=== PATIENT | male | born 1965 | race Two or more races ===

== ENCOUNTER 2021-08-07 20:55 | Emergency (ER) | payer SELFPAY ==
[~2021-08-07] VITALS: Ht 167.6 cm; Wt 108.2 kg
[2021-08-07 21:41] VITALS: BP 158/94
[2021-08-07] MEDS ORDERED: LIDOCAINE (700MG/PATCH) PATCH. TD ONE (21:50)
[2021-08-07] MEDS ORDERED: KETOROLAC 60 MG/2 ML VIAL. IM ONE (22:00)
[2021-08-07] MEDS ORDERED: ORPHENADRINE CITRATE 60 MG/2 ML VIAL. IM ONE (22:00)
[2021-08-07] MEDS ORDERED: NAPR500T8 PO (22:52)
[2021-08-07] MEDS ORDERED: ORPH100T PO (22:52)
--- NOTE | 2021-08-07 22:57 | PHYS DOC ---
Past Medical History Past Medical History: No Pertinent History Additional Past Medical Histor: Patient denies Past Surgical History: Cholecystectomy Smoking Status: Former Smoker Additional Information: quit smoking 02/2021 Alcohol Use: None Drug Use: None General Adult EDM: Chief Complaint: BACK PAIN OR INJURY HPI: HPI: Patient is a 56 year old male who presents with left-sided low back pain that began 2 weeks ago. Patient rates his pain 10/10 and radiating down the back of his left leg down to his heel. 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 He denies any specific event or injury that was the cause of his pain. Patient denies history of chronic low back pain or prior episodes of low back pain. He has taken Tylenol at home without significant symptom relief. Patient denies bowel and bladder incontinence, saddle anesthesia, IV drug use. Patient is northern irish speaking. Interview and exam were conducted in northern irish with good understanding and fluid communication. Review of Systems: Review of Systems: ROS negative or noncontributory except as mentioned in HPI. Heart Score: C/O Chest Pain: No Current Medications: Current Medications Medications (Trade) Dose Ordered Sig/Jacqueline Start Time Stop Time Status Last Admin Dose Admin Ketorolac Tromethamine (Toradol Im) 60 mg 1X ONCE 08/07/21 22:00 08/07/21 22:01 DC 08/07/21 22:12 60 MG Lidocaine (Lidoderm) 1 patch 1X ONCE 08/07/21 21:50 08/07/21 21:51 DC 08/07/21 22:12 1 PATCH Orphenadrine Citrate (Norflex) 60 mg 1X ONCE 08/07/21 22:00 08/07/21 22:01 DC 08/07/21 22:12 60 MG Allergies: Allergies: Allergies Coded Allergies Type Severity Reaction Last Updated Verified No Known Drug Allergies 08/07/21 No Physical Exam: PE: Constitutional: Well developed, well nourished, non-toxic appearance, patient in mild distress secondary to pain. HENT: Normocephalic, atraumatic, bilateral external ears normal, nose normal. Eyes: EOMI, conjunctiva normal, no discharge. Neck: Normal range of motion, no tenderness, no stridor. Skin: Warm, dry, no erythema, no rash. Back: No step-off, no midline/bony tenderness, left-sided paraspinal tenderness appreciated in lumbar/sacral region with underlying spasm. Extremities: No tenderness, no cyanosis, no clubbing, ROM intact, no edema. Neurologic: Alert and oriented x4, no focal deficits noted. Current Patient Data: Vital Signs: Vital Signs Date Time Temp Pulse Resp B/P (MAP) Pulse Ox O2 Delivery O2 Flow Rate FiO2 08/07/21 21:41 98.4 91 16 158/94 (115) 96 Room Air 98.4 Course & Med Decision Making: Course & Med Decision Making Pertinent Labs and Imaging studies reviewed. (See chart for details) Dragon Disclaimer: DragChronicity Disclaimer: This electronic medical record was generated, in whole or in part, using a voice recognition dictation system. Departure Departure Impression: Primary Impression: Low back pain with left-sided sciatica Qualified Codes: M54.42 - Lumbago with sciatica, left side Disposition: HOME / SELF CARE / HOMELESS Condition: IMPROVED Referrals: NO PCP (PCP) SIMON HOBBS MD Patient Instructions: Low Back Strain with Rehab[facility], Sciatica, [id number] Additional Instructions: INSTRUCCIONES GENERALES DE [place] DEL DEPARTAMENTO DE EMERGENCIA Trupti por venir liat al Departamento de Emergencias (ED) de [facility] y confiarnos newton atencin. Confiamos en que haya tenido hazel experiencia positiva en nuestro Departamento de Emergencias. Si desea hablar con la gerencia del departamento, puede llamar al director al . PENELOPE INSTRUCCIONES DE SEGUIMIENTO SON LAS SIGUIENTES: 1. Jakub un seguimiento con newton mdico de atencin primaria. Si no tiene un mdico de cabecera, solicite hazel lista de recursos de mdicos o clnicas que puedan ayudarlo con la atencin de seguimiento. 2. El proveedor de emergencia peck interpretado penelope estudios de imgenes, si se ordenaron. El especialista en imgenes de radiologa tambin los hellen. Si hay un cambio en los hallazgos, se le notificar en 48 horas cuando sea posible. 3. Si se peck realizado hazel prueba de laboratorio o un cultivo, se revisarn penelope resultados y se le notificar si necesita un cambio en el tratamiento. 4. Siga las instrucciones verbalizadas y consulte las copias impresas si es necesario. INSTRUCCIONES E INFORMACIN ADICIONALES: 1. Newton atencin hoy peck sido supervisada por un mdico especialmente capacitado en atencin de emergencia. Muchos problemas requieren ms de hazel evaluacin para un diagnstico y tratamiento completos. Le recomendamos que programe newton faviola de seguimiento segn lo recomendado para garantizar el tratamiento completo de newton enfermedad o lesin. Si no puede obtener atencin de seguimiento y contina teniendo un problema, o si newton condicin empeora, le recomendamos que regrese al servicio de urgencias. 2. No podemos determinar de manera yin newton condicin por telfono ni podemos brayan consejos mdicos slidos por telfono. Por estas razones de seguridad, si llama para pedir consejo mdico, le pediremos que vaya al servicio de urgencias para hazel evaluacin adicional. 3. Si tiene alguna pregunta sobre estas instrucciones de israel, llame al ED al . INFORMACIN DE SEGURIDAD: En inters de la seguridad, el bienestar y la prevencin de lesiones; le recomendamos que use newton cinturn de seguridad, si fuma; bastante fumador, y alentamos a la brennan a usar un becky protector para andar en bicicleta y otros eventos deportivos que presenten un mayor riesgo de lesiones en la merry. SI PENELOPE SNTOMAS EMPEORAN O SE DESARROLLAN NUEVOS SNTOMAS, O SI TIENE PREOCUPACIONES SOBRE NEWTON CONDICIN; O SI NEWTON CONDICIN EMPEORA MIENTRAS ESPERA NEWTON FAVIOLA DE SEGUIMIENTO; PNGASE EN CONTACTO CON NE[place]ON MDICO DE ATENCIN PRIMARIA, EL MDICO CUYO NOMBRE Y NMERO LE DIERON, O REGRESE AL ED INMEDIATAMENTE. Scripts Naproxen (NAPROXEN) 500 Mg Tablet.dr 1 TAB PO BID, #20 TAB Prov: ANNIE ADASM 08/07/21 Orphenadrine Citrate (ORPHENADRINE CITRATE) 100 Mg Tablet.er 1 TAB PO BID, #20 TAB Prov: ANNIE ADAMS 08/07/21 ANNIE ADAMS Aug 07, 2021 22:57
== END 2021-08-07 23:15 | disposition home or self-care (01) ==
LOC: ER 20:55
DX: M54.42 Lumbago with sciatica, left side (principal); Z87.891 Personal history of nicotine dependence
CPT/HCPCS: 96372; 99284; J1885; J2360